=== PATIENT | male | born 1945 | race Caucasian/White ===

== ENCOUNTER 2025-03-24 06:24 | Observation (INO) | payer MEDICARE, BC ==
[2025-03-24] VITALS (9 sets, daily range): BP systolic 100–132; BP diastolic 41–57; PULSE 59–70; RESP 16–18; TEMP 98.1–98.6; O2SAT 96–100
[~2025-03-24] VITALS: Ht 188 cm; Wt 97.5 kg
[2025-03-24 06:52] LABS: BASOPHILS % 0.3 % (0.0-1.0); EOSINOPHILS % 0.1 % (0.0-6.0); LYMPHOCYTES % 6.9 % (18.0-39.1); MONOCYTES % 7.0 % (4.4-11.3); NEUTROPHILS % 85.3 % (38.7-80.0); RED CELL DISTRIBUTION WIDTH 13.3 % (11.7-14.4)
[2025-03-24 07:12] LABS: EST GLOMERULAR FILTRATION RATE 72.0 ML/MIN (>=60)
[2025-03-24] MEDS: SODIUM CHLORIDE 0.9% 1000ML 1,000 ML IV ONE (07:14)
[2025-03-24] MEDS: ONDANSETRON HCL INJ 2MG/ML 2ML 2 MG/ML VIAL IV STA (07:14)
[2025-03-24] MEDS ORDERED: IOPAMIDOL 370 MG/ML 100 ML INFUS..BTL INJ ONE (07:23)
[2025-03-24 08:09] LABS: LEUKOCYTE ESTERASE ,URINE NEGATIVE (NEGATIVE); PROTEIN,URINE DIPSTICK NEGATIVE (NEGATIVE); URINE UROBILINOGEN 1 mg/dL (0.2 - 1)
[2025-03-24 08:21] LABS: EPITHELIAL CELLS,URINE FEW /LPF; WBC,URINE (MAN) 0-5 /HPF (0-5)
[2025-03-24] MEDS ORDERED: ONDANSETRON HCL INJ 2MG/ML 2ML 2 MG/ML VIAL IV PRN (08:45)
[2025-03-24] MEDS: DOCUSATE SODIUM 100 MG CAP PO SCH (09:49)
[2025-03-24] MEDS: SODIUM CHLORIDE 0.9% 1000ML 1,000 ML IV SCH (09:53)
[2025-03-24] MEDS: MINERAL OIL 132 ML BTL PR ONE (11:51)
[2025-03-24] MEDS ORDERED: DEXTROSE 50% SYRINGE 50 ML IV PRN (12:00)
[2025-03-24] MEDS: INSULIN LISPRO 100 UNIT/1 ML 3ML VIAL SQ SCH (16:30)
[2025-03-24] MEDS ORDERED: ASPIRIN81 MG PO (17:36)
[2025-03-24] MEDS ORDERED: ZETIA10 MG PO (17:36)
[2025-03-24] MEDS ORDERED: ROSUVASTATIN CA10 MG PO (17:38)
[2025-03-24] MEDS ORDERED: LISINOPRIL-HCT1 EACH PO (17:39)
[2025-03-24] MEDS ORDERED: FLOMAX0.4 MG PO (17:43)
[2025-03-24] MEDS ORDERED: LEVOTHYROXINE50 MCG PO (17:43)
[2025-03-24] MEDS ORDERED: MONTELUKAST SOD10 MG PO (17:44)
[2025-03-24] MEDS ORDERED: MELOXICAM7.5 MG PO (17:44)
[2025-03-25 00:38] VITALS: BP 124/52; PULSE 62; RESP 18; TEMP 98.4; O2SAT 96
[2025-03-25 05:00] VITALS: BP 120/42; PULSE 54; RESP 18; TEMP 98.3; O2SAT 99
[2025-03-25 06:11] LABS: BASOPHILS % 0.4 % (0.0-1.0); EOSINOPHILS % 1.5 % (0.0-6.0); LYMPHOCYTES % 17.7 % (18.0-39.1); MONOCYTES % 8.4 % (4.4-11.3); NEUTROPHILS % 71.6 % (38.7-80.0); RED CELL DISTRIBUTION WIDTH 13.9 % (11.7-14.4)
[2025-03-25 06:44] LABS: EST GLOMERULAR FILTRATION RATE 76.0 ML/MIN (>=60)
[2025-03-25 06:58] LABS: % IRON SATURATION 13.0 % (15-50)
[2025-03-25 07:33] VITALS: BP 119/49; PULSE 52; RESP 18; TEMP 98.1; O2SAT 98
[2025-03-25 07:35] VITALS: BP 119/49; PULSE 52; RESP 18; TEMP 98.1; O2SAT 98
[2025-03-25] MEDS: POLYETHYLENE GLYCOL 3350 17 GM PACK PO SCH (08:40)
[2025-03-25] MEDS: MELOXICAM 7.5 MG TAB PO SCH (08:41)
[2025-03-25] MEDS: TAMSULOSIN HCL 0.4 MG CAP PO SCH (08:41)
[2025-03-25] MEDS: ASPIRIN 81 MG CHEW TAB PO SCH (08:41)
[2025-03-25] MEDS: MONTELUKAST SODIUM 10 MG TAB PO SCH (08:41)
[2025-03-25] MEDS: LEVOTHYROXINE SODIUM 50 MCG TAB PO SCH (08:41)
[2025-03-25] MEDS: EZETIMIBE 10 MG TAB PO SCH (08:41)
[2025-03-25] MEDS ORDERED: FEROSUL325 MG PO (10:24)
== END 2025-03-25 11:15 | disposition home or self-care (01) ==
LOC: ER 06:27 → ERHOLD 08:46 → MED/SURG3 09:38
PROVIDERS: ADMIT Internal Medicine; ATTEND Internal Medicine
DX: K56.41 Fecal impaction (principal); D64.9 Anemia, unspecified; D69.6 Thrombocytopenia, unspecified; I10 Essential (primary) hypertension; E11.9 Type 2 diabetes mellitus without complications; Z79.84 Long term (current) use of oral hypoglycemic drugs; E78.5 Hyperlipidemia, unspecified; K21.9 Gastro-esophageal reflux disease without esophagitis; E03.9 Hypothyroidism, unspecified; N40.0 Benign prostatic hyperplasia without lower urinary tract symptoms; Z96.659 Presence of unspecified artificial knee joint
CPT/HCPCS: 36415; 74177; 80053; 81001; 82607; 82728; 82948; 83036; 83540; 83690; 84466; 85025; 85045; 99284; G0378; J2405; J7030; Q9967

== ENCOUNTER → 2025-04-11 | Day surgery (SDC) | payer MEDICARE, BC ==
[2025-04-05 15:54] LABS: BASOPHILS % 0.8 % (0.0-1.0); EOSINOPHILS % 3.6 % (0.0-6.0); LYMPHOCYTES % 28.9 % (18.0-39.1); MONOCYTES % 8.6 % (4.4-11.3); NEUTROPHILS % 57.9 % (38.7-80.0); RED CELL DISTRIBUTION WIDTH 13.3 % (11.7-14.4)
[~2025-04-11] MED LIST: AMINO ACID1 EACH PO; ASPIRIN81 MG PO; COLLAGEN PO; FEROSUL325 MG PO; FLOMAX0.4 MG PO; HYOSCYAMINE SULFATE 0.5 MG/ML INJ ONE; LEVOTHYROXINE50 MCG PO; LIDOCAINE HCL 2% LOCAL INJ 5 ML SDV VIAL INJ ONE; LISINOPRIL-HCT1 EACH PO; MELOXICAM7.5 MG PO; MONTELUKAST SOD10 MG PO; OMEGA PLEX PO; OMEPRAZOLE40 MG PO; PROBIOTIC1 EAC1 PO; PROPOFOL IV EMULSION 50 ML IV ONE; ROSUVASTATIN CA10 MG PO; VITAMIN C500 MG PO; VITAMIN D310 MCG PO; ZETIA10 MG PO; [UNRECOGNIZED DRUG - OTHER] PO
[2025-04-11] MEDS: LACTATED RINGER'S 1,000 ML ONE (09:45)
[2025-04-11 11:34] VITALS: TEMP 97.5
[2025-04-11 12:05] VITALS: BP 140/61; PULSE 76; RESP 16; O2SAT 97
== END | disposition home or self-care (01) ==
LOC: OR 08:09
PROVIDERS: ATTEND Internal Medicine Gastroenterology
DX: K51.814 Other ulcerative colitis with abscess (principal); K57.30 Diverticulosis of large intestine without perforation or abscess without bleeding; K64.8 Other hemorrhoids; K21.9 Gastro-esophageal reflux disease without esophagitis; D64.9 Anemia, unspecified; N40.0 Benign prostatic hyperplasia without lower urinary tract symptoms; I10 Essential (primary) hypertension; E11.9 Type 2 diabetes mellitus without complications; E78.00 Pure hypercholesterolemia, unspecified; E03.9 Hypothyroidism, unspecified; Z79.1 Long term (current) use of non-steroidal anti-inflammatories (NSAID); Z79.890 Hormone replacement therapy; Z79.82 Long term (current) use of aspirin; Z79.899 Other long term (current) drug therapy; Z01.810 Encounter for preprocedural cardiovascular examination; Z01.812 Encounter for preprocedural laboratory examination
CPT/HCPCS: 36415; 45380; 85025; 88305; 93005; J1980; J2003; J2704; J7121; 45378